=== PATIENT | male | born 1980 | race African-American/Black ===

== ENCOUNTER 2016-07-19 17:10 | Emergency (ER) | payer SELFPAY ==
[~2016-07-19] VITALS: Ht 182.9 cm; Wt 76.2 kg
[2016-07-19 17:57] VITALS: BP 128/66
[2016-07-19] MEDS ORDERED: KETOROLAC TROMETHAMINE INJ 30 MG/ML VIAL ONE (18:22)
[2016-07-19] MEDS ORDERED: KETOROLAC TROMETHAMINE INJ 60 MG/2 ML VIAL IM ONE (18:30)
== END 2016-07-19 18:42 | disposition home or self-care (01) ==
LOC: ER 17:12
DX: J02.8 Acute pharyngitis due to other specified organisms (principal)
CPT/HCPCS: 96372; 99283; A4606; J1885; Z7610